=== PATIENT | male | born 1995 | race Caucasian/White ===

== ENCOUNTER 2017-01-09 16:43 | Inpatient (IN) | payer BC, OTHER ==
[~2017-01-09] VITALS: Ht 188 cm; Wt 77.1 kg
--- NOTE | 2017-01-09 17:20 | NUR ---
PRE-ADMISSION Pt is presenting himself in intake with his aunt by his side. Pt is observed with increase anxiety and flushed face. Pupils are largely dilated. Tremors are observed. Pt is c/o nausea and muscle aching 12/02. VS were obtained BP 132/79, P 106, R 18, T 98.2, O2 98%. Pt states of having DM type I and brought his insulin from home. At this time pt does not want to disclose substance use. COWS score is 15 and CIWA score is 17. Pt is stable to be admitted to unit. Will continue with care.
[2017-01-09 17:35] VITALS: BP 132/79
--- NOTE | 2017-01-09 19:10 | NUR ---
ADMISSION NOTE Pt is a 21 yr old male, awake, alert and oriented x4. Pt is presenting himself to [facility] for ETOH/Benzo/Opiate use. Pt is observed with increase anxiety and facial flush. Body check is complete. Skin is intact, warm and moist to touch. Fine tremors are observed. Lung sounds are clear throughout. Pt is c/o nausea and muscle aching. Pt states of vomiting blood on 01/08/17 but no episodes of vomiting any blood today on 01/09/17. pt is c/o headache. Encouraged pt to drink plenty of fluids. COWS score is 15 and CIWA score is 17 during assessment. Pt is not able to provide urine for urine drug screen. Endorsed to night warehouse manager nurse to f/u. Pt states of having PMH of DM type I, Anxiety, Depression, Mood disorder, and Hx of Seizures. pt states of having a total of 6 episodes of seizures. Last episode was 6 months ago. Pt states of being prescribed Depakote for Sz. Pt is also taking Seroquel HS for sleep. Pt is on Humalog and Lantus insulin for DM type I. Accu check was done upon admission per Dr. Glynn. BS is 316 and received 12 units of Regular Insulin as ordered at 1800. Pt is cooperative with assessment. Pt states he started using Benzo and Opiates due to a in the family. Pt also states his father has hx of substance use including ETOH use. Pt states of having suicide attempt about 1 year ago but has not had any ideation or attempt since then. Pt denies any PCP. Substance History: 1. ETOH -Pt states of started drinking at the age of 8 yrs old. Pt states of drinking 20 shots of rum/vodka daily for the past 90 days. Last use was on 01/05/17, pt drank 20 shots of rum. 2. Xanax - Pt states of first using Xanax was 3 years ago. Pt states of using 10-15mg PO/Snort daily for the past 90 days. last use was on 01/07/17, pt used 10-12mg PO 3. [place] - Pt states of first using [place] 3 years ago. Pt states of using 50-100mg PO daily for the past 90 days. Last use was on 01/06/17, Pt used 120mg PO 4. Morphine - Pt states of first using Morphine 90 days go. Pt states of using 80-120mg daily PO/IV for 90 days. Last use was on 01/07/17 used 80mg IV 5. Phenibut - Pt states of first using 10 days ago. Pt states of using 2,000-10,000mg PO for 10 days. last use was on 01/09/17 2 hours prior to intake. Pt states of taking 6,000mg PO. 6. Marijuana - Pt states of first using when he was 17 yrs old. Pt states of smoking 7g daily for the past 90 days. Last use was on 01/08/17, pt states he smoked 1g. Tx Hx: Pt states of going to 5 treatments but can only recall the first tx center and the last tx center. Pt states he went to [place] when he was 20 yrs old and was in for 25 days, then relapsed and last tx center was [facility] in December 2015 and was sober for 9 months then relapsed. Pt received tour around unit and was educated on equipment in room. Pt was seen and examined by Dr. Glynn and will start on Phenobarbital taper and Subutex taper. Orders were initiated by . Pt was educated on medication regimen. Pt was able to verbalize understanding. Bed kept in low positions with side rails padded. Call light is within reach.
[2017-01-09 20:00] VITALS: BP 132/75
--- NOTE | 2017-01-09 22:00 | NUR ---
PRN BENTYL, ZOFRAN Pt c/o stomach cramps and nausea. PRN BENTYL, ZOFRAN administered. Safety measures in place : bed on lowest position with side rails x2 up for safety, call light within reach. Will continue to monitor closely and offer help.
--- NOTE | 2017-01-09 23:00 | NUR ---
RE-ASSESSMENT BRAYAN MALDONADO Pt. is sleeping, RR=16, unlabored and even.Safety measures in place : bed on lowest position with side rails x2 up for safety, call light within reach. Will continue to monitor closely and offer help.
[2017-01-09 23:25] LABS: *AMPHETAMINE, URINE NEGATIVE (NEGATIVE); *BARBITURATE, URINE NEGATIVE (NEGATIVE); *CANNABINOID, URINE POSITIVE (NEGATIVE); *COCCAINE, URINE NEGATIVE (NEGATIVE); *OPIATE, URINE NEGATIVE (NEGATIVE); *PHENCYCLIDINE SCREEN,URINE NEGATIVE (NEGATIVE)
[2017-01-10] VITALS (7 sets, daily range): BP systolic 106–144; BP diastolic 55–76
[2017-01-10 01:01] LABS: ALANINE AMINOTRANSFERASE 27 U/L (16-63); ALKALINE PHOSPHATASE 89 U/L (50-136); ASPARTATE AMINOTRANSFERASE 17 U/L (15-37); BILIRUBIN,TOTAL 0.3 mg/dL (0.2-1.0); CARBON DIOXIDE 23 mmol/L (21-32); CHLORIDE 101 mmol/L (98-107); CREATININE 1.5 mg/dL (0.6-1.3); GLUCOSE 134 mg/dL (74-106); MAGNESIUM 1.9 mg/dL (1.8-2.4); POTASSIUM 3.2 mmol/L (3.5-5.1); TOTAL PROTEIN, SERUM 8.3 g/dL (6.4-8.2); UREA NITROGEN, BLOOD 16 mg/dL (7-18)
[2017-01-10 01:18] LABS: ETHANOL < 3 MG/DL (0-0)
[2017-01-10 02:08] LABS: BASOPHILS % (AUTO) 0.2 % (0.0-2.0); EOSINOPHILS % (AUTO) 0.5 % (0.0-7.0); HEMOGLOBIN 14.9 G/DL (14.0-18.0); LYMPHOCYTES % (AUTO) 27.5 % (20.5-74.5); MEAN CORPUSCULAR HEMOGLOBIN 30.6 UUG (27.0-31.0); MEAN CORPUSCULAR HGB CONC 34 g/dL (32.0-37.0); MEAN CORPUSCULAR VOLUME 90.5 FL (82.0-92.0); MONOCYTES % (AUTO) 7.8 % (0-11); PLATELET COUNT (AUTO) 294 K/UL (150-450); RED BLOOD CELL COUNT(AUTO) 4.86 MIL/UL (4.7-6.1); WHITE BLOOD COUNT (AUTO) 11.1 K/UL (4.0-11.2)
[2017-01-10] MEDS ORDERED: INSU100V7 SQ (06:39)
[2017-01-10] MEDS ORDERED: QUET400T PO (06:41)
[2017-01-10] MEDS ORDERED: INSU100V (06:41)
[2017-01-10] MEDS ORDERED: DIVA500T2 PO (06:42)
--- NOTE | 2017-01-10 06:53 | NUR ---
END OF SHIFT NOTE : Pt is a 21 yr old male, awake, alert and oriented x4. Pt is presenting himself [facility] for ETOH/Benzo/Opiate use. Pt is observed with increase anxiety and facial flush. Pt states of vomiting blood on 01/08/17 but no episodes of vomiting any blood today on 01/09/17. pt is c/o headache. Encouraged pt to drink plenty of fluids. Pt is able to provide urine for urine drug screen. Pt states of having PMH of DM type I, Anxiety, Depression, Mood disorder, and Hx of Seizures. pt states of having a total of 6 episodes of seizures. Last episode was 6 months ago. Pt states he started using Benzo and Opiates due to a in the family. Pt states of having suicide attempt about 1 year ago but has not had any ideation or attempt since then. Pt remains compliant with the treatment plan. PRNs ZOFRAN, BENTYL given during my shift. V/S remain WNL. RR=16, even and unlabored, lungs clear upon auscultation, abdomen soft and non- distended. Pt denies nausea, vomiting and diarrhea. LAST COWS=4 , CIWA at 0400 , INTAKE= 500 ml, voided x2 , slept 8 hours. Safety measures in place : bed on lowest position with side rails x2 up for safety, call light within reach. Will continue to monitor closely and offer help.
--- NOTE | 2017-01-10 07:15 | NUR ---
START OF SHIFT Pt is a 21 yr old male, awake, alert and oriented x4. Pt was admitted on 01/09/17 for Opiate/Benzo/ETOH dependence and is on 5 day Phenobarbital and 5 day Subutex taper as ordered. Medication rodrick well. Received report from sales service manager nurse. Pt received Zofran and Bentyl PRN during the night. Medication was effective. Pt denies any n/v at this time. Pt is c/o muscle aching /10. facial grimacing is observed. Encouraged increase fluid intake. Will f/u with eMAR. Skin is intact, warm and moist to touch. Fine tremors are observed. safety precautions are observed. Call light is within reach. Will continue to monitor.
--- NOTE | 2017-01-10 07:44 | NUR ---
PRN'S GIVEN Pt is c/o generalized muscle aching and throat pain 12/02. Motrin 600mg PO PRN and Robaxin 750mg PO PRN was given as ordered. Medication rodrick well. Encouraged increase fluid intake. Will continue to monitor.
--- NOTE | 2017-01-10 07:56 | NUR ---
MD COMMUNICATION Pt is noted with BS of 53 at 0730. Pt denies any s/s of hypoglycemia. Pt was encouraged to drink Munday juice with sugar. Report to Dr. Glynn and received a new telephone order to recheck BS within 30 minutes. New order was noted and carried out. Safety precautions observed. Will continue to monitor. Addendum: 01/10/17 at 1000 by SUZANNA ELLER LVN In addition, Per Dr. Glynn ok to give orange juice instead of Dextrose 50%.
--- NOTE | 2017-01-10 08:40 | NUR ---
ACCU CHECK REASSESSMENT Accu check was done per Dr. Glynn. Glucose reading is 157 after drinking 8oz of orange juice. Dr. Glynn is made aware with no further order for insulin. Will continue to monitor.
--- NOTE | 2017-01-10 09:54 | NUR ---
PRN GIVEN Pt is c/o nausea. No episodes of vomiting was reported. Zofran 4mg PRN SL was given as ordered. Medication rodrick well. Encouraged increase fluid intake. Will continue to monitor.
--- NOTE | 2017-01-10 10:37 | NUR ---
PRN GIVEN/MD COMMUNICATION Reported to Dr. Glynn in regards to CIWA score of 15 and COWS score of 15 at 0800 and at 1000. Received a verbal order to administer Valium 10mg PO PRN as ordered. Valium 10mg PO PRN was administered. Medication rodrick well. Zofran PRN was effective but pt states on mild nausea. Green emesis bag is at bed side. Encouraged increase fluid intake. Safety precautions observed. Will continue to monitor.
--- NOTE | 2017-01-10 10:53 | NUR ---
NSG NOTES Pt was seen and examined by Dr. Glynn. Per Dr. Glynn okay to restart IV fluid for hydration as ordered at 125ml/hr for 8 hrs. IV site is on left brachial area, intact and clean. No infiltration noted. IV start at this time.
--- NOTE | 2017-01-10 11:37 | NUR ---
PRN RE-ASSESSMENT Valium PRN was not effective. Pt continues to be observed with s/s of w/d. CIWA score noted at 17. Pt is schedule for Phenobarbital and Subutex at 1300. is aware. Will continue to f/u .
--- NOTE | 2017-01-10 12:59 | NUR ---
PRN GIVEN Pt c/o heartburn Maalox 30ml PRN was given as ordered. Will continue to monitor.
--- NOTE | 2017-01-10 14:22 | NUR ---
NSG NOTES/MD COMMUNICATION Pt is observed with x5 episodes of vomiting. Pt remains nauseous and is observed with facial sweats and fine tremors. Pt is c/o generalized body aches. VS are WNL. COWS score was 17 [address] CIWA score was 19. [address] Glynn was made aware. Subutex 4mg SL PRN, Valium 20mg PO PRN, Zofran 4mg /2ml IM PRN and Clonidine 0.1mg PO PRN was given as ordered. Medication rodrick well. IV remains running for hydration. Encouraged increase fluid. Safety precautions observed. Will continue to monitor.
--- NOTE | 2017-01-10 15:00 | NUR ---
PRN RE-ASSESSMENT Valium 20mg PRN, Subutex 4mg PRN, Clonidine 0.1mg PRN and Zofran 4mg IM was mildly effective. Pt continue to be observed with s/s of w/d. Pt refused to have IV fluids running. COWS score is 14 and CIWA score is 17. Pt was educated on IV Fluid for hydration. Pt is able to verbalize understanding but continues to refuse IV fluids. Dr. Glynn is made aware. safety precautions observed. will continue to monitor.
--- NOTE | 2017-01-10 16:05 | NUR ---
MD COMMUNICATION Pt continues to have episodes of vomiting x3. Zofran 4mg IM PRN was administered at 1416. Notified Dr. Glynn with new order for Phenergan 25mg IM PRN. Order initiated by . Pt's glucose was checked at this time with BS of 144. Pt continues to refused to eat and refuses to have IV running for hydration. Reported to Dr. Glynn with new order to hold 2 units of insulin per sliding scale. Insulin is being held at this time. Will continue to monitor.
--- NOTE | 2017-01-10 16:29 | NUR ---
PRN GIVEN Pt received Phenergan 25mg IM PRN for x3 episodes of vomiting. Medication rodrick well. Will continue to monitor.
--- NOTE | 2017-01-10 17:29 | NUR ---
PRN RE-ASSESSMENT Phenergan PRN was effective. Pt denies any more episodes of vomiting but continues to have intermitted nausea.
--- NOTE | 2017-01-10 19:15 | NUR ---
END OF SHIFT Pt is a 21 yr old male, AA&Ox4. Pt was admitted on 01/09/17 for ETOH/Opiate/Benzo Dependence and is on 5 day Phenobarbital and 5 day Subutex taper. Pt has been observed with moderate to sever s/s of w/d. Last COWS was 14 and CIWA was 17 at 1600. Pt continue to feel nauseous. Endorse to plant operator/shift supervisor nurse to continue to monitor. Pt has IV site on left Brachial area. Pt refused to have IV fluids and has been held. MD is made aware. Pt refused to eat lunch and dinner. Encouraged pt to drink plenty of fluids. Last glucose reading was [address] Glynn to hold insulin per sliding scale. safety precautions observed. Call light is within reach.
--- NOTE | 2017-01-10 19:40 | NUR ---
START OF SHIFT Received report from day shift nurse. Pt is lying in bed watching TV. He is a 21 yo male admitted to [facility] on 01/09 for ETOH, BZD, opioid, and phenibut dependence. He is A&O x3 and ambulatory. NKA, consistent carb diet, and on a regular diet. PMH of DM Type I, seizure, anxiety, depression, and mood disorder. On admission pt reported drinking ETOH 20 shots per day, xanax 10-15mg per day, norco 50-100mg per day, 50-180mg per day, phenibut 2,000-10,000mg per day, and marijuana. Pt started a 5 day subutex and 5 day Phenobarbital taper today. He reports mild nausea, anxiety, body aches, and flushing. He is observed with mild tremors. Fall and seizure precautions in place.
--- NOTE | 2017-01-10 21:12 | NUR ---
PRN Insulin administration. Pt's HS BG is 227. PRN Humulin Insulin administered per sliding scale.
--- NOTE | 2017-01-10 21:19 | NUR ---
PRN Zofran Pt reports nausea without vomiting. PRN Zofran administered.
--- NOTE | 2017-01-10 22:19 | NUR ---
PRN Zofran reassessment PRN Zofran somewhat effective. Pt reports nausea has decreased but not completely resolved.
--- NOTE | 2017-01-10 22:55 | NUR ---
PRN Valium Pt reports continued anxiety and is observed to have tremors. CIWA 7 and COWS 8. PRN Valium administered.
--- NOTE | 2017-01-10 23:55 | NUR ---
PRN Valium reassessment PRN Valium effective. Pt is lying in bed resting with eyes closed. Respirations even and unlabored. Safety measures in place.
[2017-01-11] VITALS (7 sets, daily range): BP systolic 108–160; BP diastolic 56–85
--- NOTE | 2017-01-11 04:00 | NUR ---
0400 CIWA and COWS deferred CIWA and COWS ordered Q4HWA. Pt is lying in bed resting with eyes closed. Respirations even and unlabored. Vital signs obtained. Safety measures in place.
[2017-01-11 06:06] LABS: HEPATITIS B SURFACE AG Negative (Negative)
--- NOTE | 2017-01-11 07:05 | NUR ---
END OF SHIFT Report provided to day shift nurse. Pt is lying in bed resting. He is a 21 yo male admitted to [facility] on 01/09 for ETOH, BZD, opioid, and phenibut dependence. He is A&O and ambulatory. NKA, consistent carb diet, and on a CCHO diet. PMH of DM Type I, seizure, anxiety, depression, and mood disorder. On admission pt reported drinking ETOH 20 shots per day, xanax 10-15mg per day, norco 50-100mg per day, 50-180mg per day, phenibut 2,000-10,000mg per day, and marijuana. Pt started a 5 day subutex and 5 day Phenobarbital taper today. He has an IV on the left AC. Pt refused IV fluids. He was exhibiting s/s of withdrawal. PRN Zofran, Valium, and Insulin administered per orders. Last COWS 7 and CIWA 8 before last medication administered and he was able to sleep for 7 hours. He drank 900mL. His appetite remains poor. Fall and seizure precautions in place. Bed is down with call light in reach.
--- NOTE | 2017-01-11 08:05 | NUR ---
START OF SHIFT NOTE Received patient Aox4. Patient requesting nurse stating he doesn't feel good. He states feeling nauseous. Patient has DM type 1 and is on consistent carb diet with accucheks AC and HS. He was given PRN Zofran and Valium per night nurse. He slept 7 hours. He has a Left AC IV in place. He is on 5 day Pheno/5 day Subutex taper. COWS 6 CIWA 9 this morning at 0800. Encouraged pt to notify RN if S/S of W/D worsen. Encouraged pt to increase fluid intake as tolerated. Will monitor closely and offer help.
--- NOTE | 2017-01-11 08:22 | NUR ---
PRN MEDICATION ZOFRAN GIVEN FOR C/O NAUSEA. WILL REASSESS
[2017-01-11 08:58] LABS: CREATININE 0.9 mg/dL (0.6-1.3); PHOSPHOROUS 4.9 mg/dL (2.5-4.9); POTASSIUM 3.8 mmol/L (3.5-5.1)
--- NOTE | 2017-01-11 09:15 | NUR ---
PRN REASSESSMENT PATIENT STATES HE FEELS A LITTLE LESS NAUSEOUS.
--- NOTE | 2017-01-11 10:22 | NUR ---
IV LINE DC'D PATIENT REPORTS IRRITATED IV SITE WITH BLOOD SHOWING. PT REPORTS TENDERNESS AND STATES "IM GOING TO TAKE IT OUT IF YOU DONT"
--- NOTE | 2017-01-11 12:15 | NUR ---
PRN MEDICATION 10 MG VALIUM & 4 MG SUBUTEX GIVEN FOR INCREASED W/D SYMPTOMS. COWS 12 CIWA 12. PT PRESENTS ANXIOUS AND AGITATED WITH TREMORS AND SWEATS. WILL REASSESS
--- NOTE | 2017-01-11 13:15 | NUR ---
PRN REASSESSMENT PATIENT REPORTS IMPROVEMENT IN SYMPTOMS. SCORES DECREASED TO COWS 7 CIWA 7. WILL MONITOR.
--- NOTE | 2017-01-11 15:19 | NUR ---
PRN MEDICATION PHENERGAN GIVEN FOR NAUSEA. WILL REASSESS
--- NOTE | 2017-01-11 16:15 | NUR ---
PRN REASSESSMENT PT REPORTS IMPROVEMENT IN NAUSEA.
--- NOTE | 2017-01-11 17:36 | NUR ---
PRN MEDICATION 10 MG VALIUM GIVEN FOR CIWA 12. PT APPEARS TREMULOUS AND ANXIOUS. WILL MONITOR
--- NOTE | 2017-01-11 18:28 | NUR ---
PRN REASSESSMENT PATIENT STATES HE FEELS BETTER AND LESS ANXIOUS. CIWA DECREASED TO 5.
--- NOTE | 2017-01-11 18:37 | NUR ---
END OF SHIFT NOTE PATIENT CONTINUED ON 5 DAY PHENOBARB/5 DAY SUBUTEX TAPER AND TOLERATING WELL. PATIENT ON DIABETIC DIET WITH ACCUCHEK ACHS- COVERED WITH INSULIN ORDERED. PATIENT PRESENTED ANXIOUS DURING SHIFT. PRN ZOFRAN , VALIUM X2, SUBUTEX, AND PHENERGAN GIVEN DURING SHIFT. LAST BLOOD SUGAR 193. LAST COWS 5 CIWA 7.PATIENT DID NOT ATTEND GROUPS OR ACTIVITIES DURING SHIFT. ALL NEEDS MET. SAFETY MEASURES IN PLACE. VITAL SIGNS STABLE. WILL ENDORSE TO NIGHT NURSE.
--- NOTE | 2017-01-11 19:55 | NUR ---
START OF SHIFT Received report from day shift nurse. Pt is in is room resting. He is a 21 yo male admitted to [facility] on 01/09 for ETOH, BZD, opioid, and phenibut dependence. He is A&O x4 and ambulatory. NKA, consistent carb diet, and on a regular diet. PMH of DM Type I, seizure, anxiety, depression, and mood disorder. On admission pt reported drinking ETOH 20 shots per day, xanax 10-15mg per day, norco 50-100mg per day, 50-180mg per day, phenibut 2,000-10,000mg per day, and marijuana. Pt started a 5 day subutex and 5 day Phenobarbital taper today. He reports nausea, muscle aches, and anxiety. He is observed with tremors and restlessness. Tapers due tonight. Fall and seizure precautions in place. Bed is down with call light in reach. Addendum: 01/12/17 at 0637 by TYLER COLE RN Subutex and Phenobarbital tapers started 01/10.
--- NOTE | 2017-01-11 20:46 | NUR ---
PRN Robaxin and Zofran Pt c/o body aches 7/10 and nausea without vomiting. PRN Robaxin and Zofran ODT administered.
--- NOTE | 2017-01-11 21:16 | NUR ---
PRN Zofran reassessment PRN Zofran somewhat effective. Pt reports that he continues to have only mild nausea.
--- NOTE | 2017-01-11 21:46 | NUR ---
PRN Robaxin reassessment PRN Robaxin effective. Pt reports that body aches are reduced to 3/10.
--- NOTE | 2017-01-11 23:30 | NUR ---
PRN Valium and Phenergan Pt reports that nausea has increased again and that he is anxious. He is observed with hand tremors and jaw chattering. COWS 9 and CIWA 9. PRN Valium and Phenergan administered.
--- NOTE | 2017-01-11 23:45 | NUR ---
PRN Motrin Pt c/o generalized body aches 11/01. PRN Motrin administered.
--- NOTE | 2017-01-11 23:50 | NUR ---
IV Insertion 22 gauge IV inserted to the right AC that is is patent and intact with good blood return. Pt tolerated the insertion.
[2017-01-12] VITALS (23 sets, daily range): BP systolic 104–151; BP diastolic 54–85
--- NOTE | 2017-01-12 | NUR ---
Phenergan reassessment PRN Phenergan effective. Pt reports nausea is relieved.
--- NOTE | 2017-01-12 00:30 | NUR ---
PRN Valium reassessment PRN Valium effective. Pt is lying in bed resting. Tremors are resolved and he reports feeling more relaxed. COWS 4 and CIWA 4.
--- NOTE | 2017-01-12 00:45 | NUR ---
PRN Motrin reassessment PRN Motrin effective. Pt is lying in bed resting with eyes closed. Respirations even and unlabored. Safety measures in place.
--- NOTE | 2017-01-12 03:00 | NUR ---
Nursing Note/MD Communication/Rapid Response At 0230 staff responded to patient moaning in bed and he was difficult to arouse. Pt only arousable to light pain. Vitals signs B/P 151/84, HR 141, RR 12, O2 sat 94%, T 98.0. Patient able to stay awake for 10 seconds at most before falling back to sleep. 0233 - Rapid response responded to call for altered LOC. MD made aware of assessment. New orders for STAT ECG. 0235 - vitals B/P 137/85, HR 124, RR 12, O2 sat 100% on non-rebreather 5LPM, and blood glucose 119. MD made aware. New orders received for CBC, BMP, ABG, LFT, CXR, NS@125mL/hr, vitals Q1H, and 1:1 sitter. 0240 - vitals B/P 114/78, HR 105, RR 14, O2 sat 100% on non-rebreather 2LPM. 0300 - vitals B/P 124/65, HR 93, RR 14, O2 sat 99% NC 2LPM. Pt remains sedated but stable. No acute distress. Will continue to monitor.
[2017-01-12 03:04] LABS: BASOPHILS % (AUTO) 0.3 % (0.0-2.0); EOSINOPHILS # (AUTO) 0.1 K/uL (0.0-0.7); EOSINOPHILS % (AUTO) 1.3 % (0.0-7.0); HEMATOCRIT 41.2 % (40-50); HEMOGLOBIN 13.6 G/DL (14.0-18.0); LYMPHOCYTES # (AUTO) 2.1 K/UL (0.8-4.8); LYMPHOCYTES % (AUTO) 39.5 % (20.5-74.5); MEAN CORPUSCULAR HEMOGLOBIN 29.8 UUG (27.0-31.0); MEAN CORPUSCULAR HGB CONC 33 g/dL (32.0-37.0); MEAN CORPUSCULAR VOLUME 90.1 FL (82.0-92.0); MONOCYTES # (AUTO) 0.5 K/UL (0.1-1.30); MONOCYTES % (AUTO) 10.4 % (0-11); NEUTROPHILS # (AUTO) 2.5 K/UL (1.8-8.9); NEUTROPHILS % (AUTO) 48.5 % (31.5-64.5); PLATELET COUNT (AUTO) 226 K/UL (150-450); RED BLOOD CELL COUNT(AUTO) 4.57 MIL/UL (4.7-6.1); WHITE BLOOD COUNT (AUTO) 5.2 K/UL (4.0-11.2)
[2017-01-12 03:13] LABS: CREATININE 0.8 mg/dL (0.6-1.3)
[2017-01-12 03:20] LABS: BILIRUBIN,DIRECT 0.1 mg/dL (0.0-0.2); BILIRUBIN,TOTAL 0.5 mg/dL (0.2-1.0); TOTAL PROTEIN, SERUM 7.4 g/dL (6.4-8.2)
[2017-01-12 03:49] LABS: ABG BASE EXCESS 2.4 mmol/L; ABG HCO3 28.9 mmol/L; ABG PCO2 52.3 mmHg (35.0-45.0); ABG PH 7.361 (7.350-7.450); ABG PO2 75.8 mmHg (75.0-100.0); ABG SITE LEFT RADIAL; ABG TOTAL HEMOGLOBIN 14.3 G/dL (13.5-18.0); COHb 1.7 % (0.5-1.5); MetHb 0.3 % (0.0-1.5); O2Hb 93.4 % (94.0-97.0); VENT MODE Room Air
--- NOTE | 2017-01-12 04:00 | NUR ---
Nursing Note/MD Communication Reported all results to licensed occupational therapy assistant MD. K+ level is 3.0. Orders received to change IV NS to IV NS + KCl. Vital signs B/P 104/67, HR 83, RR 14, O2 sat 99% on O2 2LPM NC.
--- NOTE | 2017-01-12 04:01 | NUR ---
0400 COWS and CIWA deferred COWS and CIWA ordered Q4HWA. Pt is lying in bed resting with eyes closed. Respirations even and unlabored. Vital signs obtained. Safety measures in place.
[2017-01-12 05:06] LABS: MAGNESIUM 1.8 mg/dL (1.8-2.4); PHOSPHOROUS 4.8 mg/dL (2.5-4.9)
--- NOTE | 2017-01-12 07:25 | NUR ---
END OF SHIFT Report provided to day shift nurse. Pt is lying in bed resting with a 1:[address] for safety[address] He is a 21 yo male admitted to [facility] on 01/09 for ETOH, BZD, opioid, and phenibut dependence. NKA, consistent carb diet, and on a regular diet. PMH of DM Type I, seizure, anxiety, depression, and mood disorder. On admission pt reported drinking ETOH 20 shots per day, xanax 10-15mg per day, norco 50-100mg per day, 50-180mg per day, phenibut 2,000-10,000mg per day, and marijuana. Pt started a 5 day subutex and 5 day Phenobarbital taper on 01/10. 22 gauge IV inserted on the right AC. At 0230 pt was heard moaning. Staff responded and pt was difficult to arouse with elevated B/P and HR. Rapid response was called. MD notified with new orders received and carried out. Blood glucose at this time was 119. Pt arousable to light pain but continues to be sedated. 1:[address] for safety[address] He is on Oxygen 2LPM via nasal cannula. He is currently receiving IV NS + KCl per orders. PRN Motrin, Valium, Zofran, Phenergan, Robaxin, and sliding scale insulin administered. Last COWS 4 and CIWA 4. He drank 480mL and slept. Fall and seizure precautions in place. Bed is down with call light in reach.
--- NOTE | 2017-01-12 07:30 | NUR ---
START OF SHIFT Pt 21 y/o male admitted for opiate/ benzo/ etoh dependence. Pt received in room on bed with eyes closed resting, but easily arousable to name. Pt alert and oriented to name, place, and time. Perrla. Skin warm and dry to touch. Respirations even and unlabored. Bilateral hand tremors noted. Martin anxiety noted as well. Pt with peripheral IV on right AC 22g intact, patent and in place with no redness or infiltration noted and is infusing NS + KCL @ 125mL/HR and appears to be tolerating well. It was reported that pt slept fro 10 hours last night. Bed with padded side rails x2 up for safety. Call light within reach. No distress noted at this time. Pt with sitter 1:1 at bedside to monitor for safety. Call light within reach. No distress noted at this time.
--- NOTE | 2017-01-12 09:34 | NUR ---
PRN Pt with ciwa=21 results. MD made aware to clarify valium po prn per MD order, noted and carried out.
--- NOTE | 2017-01-12 10:34 | NUR ---
PRN EVAL Pt with ciwa=6 noted. Pt observed on bed in room watching television.
--- NOTE | 2017-01-12 17:40 | NUR ---
PRN Pt with ciwa=16. Pt with gross tremors, appears anxious and restless, and with agitation noted. Valium po prn per MD order given and tolerated well.
--- NOTE | 2017-01-12 18:40 | NUR ---
PRN EVAL ciwa=6
--- NOTE | 2017-01-12 18:42 | NUR ---
NSG ENTRY Pt requested to have IV restarted after group activity.
--- NOTE | 2017-01-12 19:19 | NUR ---
END OF SHIFT Pt 21 y/o male admitted for opiate/ benzo/ etoh dependence. Pt alert and oriented to name, place, and time. Perrla. Skin warm and dry to touch. Respirations even and unlabored. Bilateral hand tremors noted. Pt with periods of anxiety throughout the morning. Pt with peripheral IV on right AC 22g intact, patent and in place with no redness or infiltration noted and is infusing NS + KCL @ 125mL/HR and appears to be tolerating well. Pt was seen by MD today. Pt medication compliant and tolerated well. No ASE noted. Bed with padded side rails x2 up for safety. Call light within reach. No distress noted at this time. Pt with sitter 1:1 at bedside to monitor for safety. Call light within reach. No distress noted at this time.
--- NOTE | 2017-01-12 19:45 | NUR ---
START OF SHIFT Received report from day shift nurse. Pt is lying in bed resting with a 1:[address] for safety[address] He is easily arousable. Pt is a 21 yo male admitted to [facility] on 01/09 for ETOH, BZD, opioid, and phenibut dependence. He is A&O x4 and ambulatory. NKA, consistent carb diet, and on a regular diet. PMH of DM Type I, seizure, anxiety, depression, and mood disorder. On admission pt reported drinking ETOH 20 shots per day, xanax 10-15mg per day, norco 50-100mg per day, 50-180mg per day, phenibut 2,000-10,000mg per day, and marijuana. 5 day subutex and 5 day Phenobarbital tapers started 01/10. 22 gauge IV to the right AC is patent and intact. No redness or swelling noted. Okay per MD to discontinue fluids due to pt refusing. Fall and seizure precautions in place. Bed is down with call light in reach.
--- NOTE | 2017-01-12 21:40 | NUR ---
PRN Tylenol Pt's temperature is 99.5. PRN Tylenol administered.
--- NOTE | 2017-01-12 22:40 | NUR ---
PRN Tylenol reassessment PRN Tylenol effective at reducing pt's temperature to 98.8.
--- NOTE | 2017-01-12 23:30 | NUR ---
IV D/C'd 22 gauge IV removed from right AC. Catheter intact. No redness, drainage, or swelling noted at site.
[2017-01-13] VITALS: BP 90/61
--- NOTE | 2017-01-13 00:03 | NUR ---
PRN Phenergan and Valium Pt reports nausea without vomiting and anxiety. He is observed with hand tremors and has moist skin. PRN Phenergan and Valium administered. Addendum: 01/13/17 at 0159 by TYLER COLE RN ROMAIN Aguirre and POLINA Multani
--- NOTE | 2017-01-13 01:03 | NUR ---
PRN Phenergan and Valium reassessment PRN Phenergan and Valium effective. Pt is lying in bed resting with eyes closed. Respirations even and unlabored. 1:1 sitter at the bedside. Safety measures in place.
[2017-01-13 04:00] VITALS: BP 119/50
--- NOTE | 2017-01-13 07:15 | NUR ---
END OF SHIFT Report provided to day shift nurse. Pt is lying in bed resting with a 1:[address] for safety[address] Pt is a 21 yo male admitted to [facility] on 01/09 for ETOH, BZD, opioid, and phenibut dependence. He is A&O and ambulatory. NKA, consistent carb diet, and on a regular diet. PMH of DM Type I, seizure, anxiety, depression, and mood disorder. On admission pt reported drinking ETOH 20 shots per day, xanax 10-15mg per day, norco 50-100mg per day, 50-180mg per day, phenibut 2,000-10,000mg per day, and marijuana. 5 day subutex and 5 day Phenobarbital tapers started 01/10. 22 gauge IV removed from right AC. No redness or swelling noted. PRN Valium and Phenergan administered. Last COWS 6 and CIWA 9 before last medications. He drank 480mL and slept for 6 hours. Fall and seizure precautions in place. Bed is down with call light in reach.
--- NOTE | 2017-01-13 07:30 | NUR ---
start of shift note: received pt from shift stacker nurse, pt is in stable condition at this time, remains on 1:1 for safety precautions. pt without A/R to medications. pt's last ciwa 9 and cows 6. will continue to monitor pt for any changes and continue to meet pts needs
[2017-01-13 09:38] LABS: CREATININE 0.8 mg/dL (0.6-1.3); MAGNESIUM 1.9 mg/dL (1.8-2.4); POTASSIUM 4.2 mmol/L (3.5-5.1)
[2017-01-13 11:00] VITALS: BP 137/70
--- NOTE | 2017-01-13 12:49 | NUR ---
PRN valium 10 mg was administered pt verbalized agitation, tremulous and increased anxiety. will reassess effectiveness of medication.
--- NOTE | 2017-01-13 13:15 | NUR ---
prn re-assessment: medication is effective pt is sleeping in bed no s/s of discomfort or agitation
[2017-01-13 13:24] VITALS: BP 128/88
--- NOTE | 2017-01-13 17:15 | NUR ---
x1 dose of pheno,subutex,baclofen,gabapentin was administered pt woke up and was agitated and aggressive towards staff and primary nurse, threatened nurse that if he doesn't get medications he will have a seizure. cows 7 and ciwa 11
[2017-01-13 18:12] VITALS: BP 123/78
--- NOTE | 2017-01-13 18:42 | NUR ---
end of shift noted: pt remains on 1:1 for safety precautions. pt is in smoking patio after dinner in stable condition interacting with other clients. pt is no longer agitated. pts last cows 7 and ciwa 11. pt at times appears sedated, once pt becomes more alert and demands medications. pt without a/r to medications. IV fluids were d/c'd, multiple boundaries have to be set with pt. will endorse pt to manager shift nurse.
--- NOTE | 2017-01-13 19:15 | NUR ---
Start of Shift Note: Patient is a 30 y/o male admitted on 01/09/17 for Opiate, Benzo and ETOH dependence. Patient has PMHx: DM I, Anxiety, Depression, Mood disorder and Hx of seizures. Patient is on a Consistent Carbohydrate Diet with no known food and drug allergies. Full Code status. Seizure and Fall precaution noted. Skin noted to be intact. Patient is on 5-day Subutex and 5-day Phenobarbital taper and tolerating well. PRN Valium available for symptoms of withdrawal. Last COWS 7 CIWA 11. Pt was given a PRN Valium 10mg @ 1249 and was given a one time dose of Gabapentin, Baclofen, Subutex and Phenobarbital @ 1719. Pt continues on a 1:1 supervision for safety precautions. Patient is alert & oriented x4. No shortness of breath noted. Respiration even & unlabored. Abdomen soft & non-distended. Pt complained of nausea with no vomiting noted. Patient appears anxious and verbalized that he is feeling tremulous and really anxious. Patient verbalized sweating, generalized body aches & chills. No hallucinations noted. Patient denies any headache. Safety measures in place. Bed locked in lowest position. Both side rails up. Call light with in pts reach. Will continue to monitor patient.
[2017-01-13 20:00] VITALS: BP 138/77
--- NOTE | 2017-01-13 21:15 | NUR ---
PRN Zofran Patient complains of nausea with no episode of vomiting noted. PRN Zofran SL administered as ordered. Will monitor for effectiveness of medication.
--- NOTE | 2017-01-13 23:10 | NUR ---
Behavioral Note: Patient repeatedly asking for additional doses of Valium, in addition to scheduled medication regime. Patient's complaints are out of proportion to objective signs and symptoms of withdrawal. Patient informed by primary nurse, Daisha, that he did not meet the criteria for PRN Valium administration. Patient became agitated and stated that he did "not appreciate the way my nurse smiled at me. It was rude." Pt demanded to know what the criteria were to score higher. Pt continued to request primary nurse or charge nurse presence in room or hallway, to engage in debate over statements client perceived as rude and why he could not have more Valium. Patient was repeatedly asked to leave nurse's station and did not comply. Patient stated that he just wanted to stand by the nurse's station and stare at specific nurses that he was angry with. Administration notified with instructions to place client on room restriction, and if non-compliant, to call [facility]. Patient eventually went out to smoking patio, smoked several cigarettes, and had 1 episode of emesis. Patient removed one large white pill out of emesis, came back to the unit, and placed pill on charge nurse desk. Patient was then placed on room restriction. Primary nurse administered Zofran IM and patient was noted to be drowsy and continued to request Valium.
[2017-01-14] VITALS: BP 137/79
--- NOTE | 2017-01-14 00:53 | NUR ---
PRN Zofran IM Patient was at smoking patio when patient vomited moderate amount of emesis according to SALES ACCOUNT REPRESENTATIVE. Pt took a pill out of emesis. Pt was brought back to room and pt was given PRN Zofran IM at right buttocks. Pt lying in bed at this time and appears drowsy, pt still continue to demand Valium medication. Pt continues on a 1:1 supervision for safety and was placed on room restriction. Safety measures in place. Will continue to monitor patient.
--- NOTE | 2017-01-14 01:53 | NUR ---
PRN Reassessment Patient lying in bed and asleep. No s/s of distress noted. 1:1 sitter at bedside. Will continue to monitor patient.
--- NOTE | 2017-01-14 07:21 | NUR ---
End of Shift Note: Pt continues on his Subutex and Phenobarbital taper. Last COWS 6 CIWA 7 @ 0100. Patient was given PRN Zofran SL @ 2115 & Zofran IM @ 0053 and were effective. Pt had behavioral issues last night when pts demands were not met. Patient exaggerates signs and symptoms of withdrawal to get medications. Boundaries needs to be set for patient. Pt continues on a 1:1 supervision for safety and was placed on a room restriction. Pt remains stable and vitals remains WNL. Pt slept for a total of 4 hours. Pt only consumed sips of water upon taking medications. Encouraged pt to increase fluid intake. Pt did not go to the bathroom the whole night. Safety measures in place. Will endorse pt to day shift nurse.
--- NOTE | 2017-01-14 07:30 | NUR ---
BEGINNING OF SHIFT Patient is a 21 year old male, with admitting Dx: etoh/bzo/opiate dependence, and with substance use of: phenibut, and marijuana. Patient with past medical history of: anxiety, DM1, depression, mod d/o and history of seizure. Patient with ongoing 5 day Phenobarbital and 5 day Subutex taper as ordered and is scheduled to start day 5 of taper. Patient skin is intact. Per french translator patient slept for 4 hours, and received PRN: Zofran x2 during french translator, medication effective. Patient with last cow score of: 6 and last ciwa score of: 7. Patient received in bed awake, alert and oriented x4, educated patient regarding plan of care for the day with good verbal understanding. Safety measures in place. call light kept with in reach, will continue to monitor closely.
[2017-01-14 08:33] VITALS: BP 135/68
--- NOTE | 2017-01-14 11:34 | NUR ---
PRN MIRALAX Patient c/o no bowel movement for "few days" patients abdomen is soft and non distended. bowel sounds heard in all quadrants, administered miralax as ordered, will monitor for effectiveness.
[2017-01-14 13:16] VITALS: BP 126/71
--- NOTE | 2017-01-14 13:34 | NUR ---
CIWA ASSESSMENT/BEHAVIOR Patient assessment completed by staff nurse and witnessed by another staff nurse, patient presenting with: mild nausea, anxiety, agitation, heart rate: 88, bp: 126/71, difficulty sitting still, mild bone and joint aches, with ciwa score of: 7 and cow score of: 7. Patient reports generalized body aches 9/10. Per MD orders patient to receive 5mg Valium PO For current ciwa score. Per patient refused 5mg Valium per patient" thats like a tic tac, i don't want it, you can keep it" Patient noted with behavior of smelling prune juice and inducing self to vomit. Patient with multiple request of asking for High doses of Valium, education regarding detox medications provided. Patient was offered Phenergan injection for N/V and refused, despite risk vs benefits explanation. Patient offered Toradol Injection for pain mgmt and refused, despite risk vs benefits explanation. Patients 1130 blood sugar: 187, Upon administration of regular insulin as ordered by Md patient refused administration of 3 unit of insulin as per sliding scale, risks benefits of refusing insulin were explained with good verbal understanding. per Dr. Glynn patient to be placed on room restriction, till further orders, will continue 1:1 sitter at bedside, will provide close nursing supervision.
--- NOTE | 2017-01-14 14:17 | NUR ---
[facility] called for pt and his escalated behavior at 1402. Pt very agitated and making verbal threats. Pt was unwilling to comply with hospital policy and procedures. Pt made a threat to staff member, "If the guards weren't here I would beat your ass". Pt stated that he did not want to stay at the hospital anymore, risks and benefits explained thoroughly by Dr Glynn. Pt left the facility escorted by security, left AMA at 1417.
== END 2017-01-14 14:17 | disposition left against medical advice (07) | DRG 894 ==
LOC: SRC 16:43
PROVIDERS: ADMIT Internal Medicine; ATTEND Internal Medicine
PROC: HZ2ZZZZ Detoxification Services for Substance Abuse Treatment (ICD-10-PCS; principal; 2017-01-09)
PROC: HZ31ZZZ Individual Counseling for Substance Abuse Treatment, Behavioral (ICD-10-PCS; 2017-01-10)
DX: F13.232 Sedative, hypnotic or anxiolytic dependence with withdrawal with perceptual disturbance (principal); N17.9 Acute kidney failure, unspecified; I15.9 Secondary hypertension, unspecified; F11.23 Opioid dependence with withdrawal; E10.65 Type 1 diabetes mellitus with hyperglycemia; Z79.4 Long term (current) use of insulin; F17.210 Nicotine dependence, cigarettes, uncomplicated; E87.6 Hypokalemia; Z91.11 Patient's noncompliance with dietary regimen; Z91.14 Patient's other noncompliance with medication regimen; Z59.1 Inadequate housing; Z76.5 Malingerer [conscious simulation]; Z81.1 Family history of alcohol abuse and dependence; Z81.3 Family history of other psychoactive substance abuse and dependence; Z91.89 Other specified personal risk factors, not elsewhere classified; F31.9 Bipolar disorder, unspecified; F41.9 Anxiety disorder, unspecified; F12.20 Cannabis dependence, uncomplicated; F10.10 Alcohol abuse, uncomplicated; Y90.9 Presence of alcohol in blood, level not specified
CPT/HCPCS: 36415; 36600; 71010; 80307; 80349; 83735; 84100; 85025; 86580; 86592; 86705; 86803; 87340; 87806; 93005; A4663; G0480; J0500; J1815; J1885; J2405; J2550; J7030; J8499; Q0162; Q0163